=== PATIENT | male | born 1980 | race Caucasian/White ===

== ENCOUNTER 2024-03-02 15:09 | Emergency (ER) | payer OTHER, SELFPAY ==
[2024-03-02 15:12] VITALS: BP 131/93
[2024-03-02 15:26] LABS: Glucose - Point of Care 87 mg/dl (70-99)
[2024-03-02 15:31] VITALS: BP 131/90
[2024-03-02 15:35] VITALS: BMI 27.4
--- NOTE | 2024-03-02 15:40 | ED.GENMED ---
History of Present Illness
General
Chief Complaint: Change in Mental Status
Source: patient and spouse
Time Seen by Provider: 03/02/24 15:29
Travel History
Have you had any contact with someone who has COVID-19?: No
Do you have any symptoms of coronavirus? Fever > 100 degrees, chills, cough, shortness of breath, sore throat, loss of taste or smell, muscle aches, or headache?: No
History of Present Illness
History of Present Illness:
43-year-old male presents to the emergency room for evaluation of headache, difficulty finding his words, photophobia. Symptoms began yesterday. Patient states he initially began feeling unwell early yesterday morning while in bed. He turned over
and had a sudden onset of vertigo and nausea. He got out of bed and attempted go to work and at 1 point collapsed perhaps passing out. Headache developed around that time. Headaches seem to improve somewhat throughout the day yesterday. He went
to his family doctor today for an evaluation. They referred him to the emergency room for further evaluation. Patient states on his way here to the emergency room his headache became suddenly worse. His neck feels tight or stiff. He is nauseous
but has not vomited.
Past History
Past History
ED Past Medical History: None and Other (back pain); Negative Asthma, HTN, Hypercholesterolemia or NIDDM
ED Past Surgical History: Orthopedic
Social History
Tobacco: Former smoker
Alcohol: Occasional
Drug: None
Personal:
Living: with family
Employment: Employed
Family History
Family History: Other (Noncontributory)
Phy Exam
Physical Exam
Physical Exam:
General: Awake, Alert, Oriented X3. At times slow to form sentences but no true word finding difficulty. Mildly anxious
Vitals: unremarkable
Head: Atraumatic
Eyes: Pupils equal, EOMI, horizontal nystagmus with left lateral gaze
Throat: Airway intact, no exudates
Neck: Trachea midline
Lungs: Clear and equal b/l
Heart: Regular rate, no murmurs
Abd: Soft, Nontender, No pulsatile mass
Neuro: Cranial nerves intact, muscle strength equal bilaterally, cerebellar exam normal
Skin: Warm, dry, no rash
Extremities: pulses equal b/l, no edema
Course
Orders/Labs/Results
Orders:
Orders
03/02/24 15:19
EKG [Electrocardiogram (*1)] Urgent
Reason for Study: Fatigue / Weakness
EKG- Treatment ONCE
03/02/24 15:38
Electrocardiogram (*1) Stat
Reason for Study: Other
Other Reason for Exam: neuro symptoms
CT Head & Neck Angio W/wo IV Urgent
Comment:
Reason For Exam: severe headache, confusion
CT Head W/o Iv Contrast Urgent
Comment:
Reason For Exam: severe headache, confusion
Cardiac Monitoring- Treatment ONCE
03/02/24 15:41
Complete Blood Count/No Diff Urgent
Comprehensive Metabolic Panel Urgent
03/02/24 16:36
Ketorolac [Toradol] 15 mg IV NOW STA
diazePAM [Valium Injection] 5 mg IV NOW STA
Abnormal Lab Results
03/02/24
15:41
BUN 23 H mg/dl
(06-11)
03/02/24 15:41
03/02/24 15:41
Vital Signs
Initial and Last Documented VS:
Initial Vital Signs
Temp Pulse Resp BP Pulse Ox
98.5 F 62 16 131/93 96
03/02/24 15:12 03/02/24 15:12 03/02/24 15:12 03/02/24 15:12 03/02/24 15:12
Last Documented Vital Signs
Temp Pulse Resp BP Pulse Ox
98.5 F 68 18 116/78 98
03/02/24 15:12 03/02/24 18:50 03/02/24 18:50 03/02/24 18:50 03/02/24 18:50
MDM/Problems Addressed
Differential Diagnosis Includes:
sah, migraine, labrynthitis, bph
MDM/Problems Addressed:
Patient presents with significant headache. His describes him as having difficulty speaking but he is articulate. He follows commands. His speech pattern is slow but not aphasic in any way. He has no dysarthria. His NIH score is 0. CT and
CT angiogram obtained. These were normal. The patient's symptoms of vertigo seem to start when he rolled over in bed suggesting more of a peripheral vertigo. Patient had significant improvement with Valium. He is ambulatory without difficulty.
He is speaking more comfortably. Patient stable for discharge home
*Radiology
Radiology exam reviewed: radiology read reviewed
*Pulse Oximetry
Patient hypoxic: no
*EKG
Interpreted by ED Provider?: Yes
Interpretation: normal
Heart Rate: 74
Rate: normal
Rhythm: sinus
Jackson: normal axis
Interval: normal interval
QRS Pattern: normal QRS
Ischemia: no ischemia
*Bed Laster Interpretation
Rate: normal
Interpretation: normal
Heart Rate: 74
Rhythm: sinus
*Critical Care Note
Total Time (30-74mins, 75-104mins- exclusive of procedures): Not Applicable
ED Attending Note
-
Portions of this chart may have been created with voice recognition software.� Occasional wrong word or��sound alike� substitutions may have occurred due to the inherent limitations of voice recognition software.
Discharge Plan
Departure
Patient Disposition: Home (Routine Discharge)
Date of Disposition: 03/02/24
Time of Disposition: 18:45
Patient with high blood pressure during this ER visit?: No
Condition: Good
Discharge Problem:
Vertigo
Instructions: Vertigo ED
Prescriptions:
No Action
sertraline 50 mg Tablet
50 mg PO DAILY
B Complex Tablet Extended Release
1 tab PO DAILY
saw palmetto 160 mg Capsule
160 mg PO DAILY
magnesium 250 mg Tablet
250 mg PO DAILY
cholecalciferol (vitamin D3) [Vitamin D3] 25 mcg (1,000 unit) Tablet
25 mcg PO DAILY
glycine 500 mg Capsule
500 mg PO DAILY
omega [id number]-rnd-fish oil [Fish Oil] 1,000 mg (120 mg-180 mg) Capsule
1 cap PO DAILY
[place]o
1 tab PO DAILY
inositol
1 tab PO DAILY
vitamin K2
1 tab PO DAILY
Referrals:
Justino Anton MD [Family Provider] -
Bryan Hyde MD [Active] -
Activity Restrictions/Additional Instructions:
I suspect your symptoms are related to inner ear inflammation. I have provided you contact information for an ears nose and throat specialist to follow-up with. Of also given you a prescription for therapy with our physical therapy department.
You can take meclizine 25mg every 8 hours for vertigo. This can be obtained [id number].
Interventions
Interventions:
*Risk Screen - Suicide Last Done: 03/02/24 15:35
*General Assessment Last Done: 03/02/24 15:35
*Neglect/Abuse Screening Last Done: 03/02/24 15:35
ED- Fall Risk Assessment Last Done: 03/02/24 15:35
*ED COVID-19 Vaccine History Last Done: 03/02/24 15:35
*Nursing Disposition Last Done: 03/02/24 18:50
ED- Pulmonary Assessment Last Done: 03/02/24 15:35
ED-Psychological Assessment Last Done: 03/02/24 15:35
ED- Neurological Assessment Last Done: 03/02/24 15:35
ED- Cardiac Assessment Last Done: 03/02/24 15:35
ED Swallowing Screen Last Done: 03/02/24 17:24
Discharge Date and Time
Discharge Date/Time: 03/02/24 18:55
Print Language: LATVIAN
[2024-03-02 15:54] LABS: Hematocrit 41.4 % (39.0-52.0); Mean Corp Hgb Conc. 36.2 g/dL (33.0-37.0); Mean Corpuscular Volume 85.5 fL (80.0-94.0); Mean Platelet Volume 9.6 fL (7.4-10.4); Platelet Count 232 10^3/uL (130-400); Red Blood Cell Count 4.84 10^6/uL (4.70-6.10); Red Cell Dist. Width 12.7 % (11.5-14.5); White Blood Cell Count 7.6 10^3/uL (4.8-10.8)
[2024-03-02 16:12] LABS: ALT (SGPT) 32 U/L (0-50); AST (SGOT) 29 U/L (17-59); Albumin 4.7 g/dl (3.5-5.0); Alkaline Phosphatase 73 U/L (38-126); Blood Urea Nitrogen 23 mg/dl (9-20); Calcium 10.2 mg/dl (8.4-10.2); Carbon Dioxide 26 mmol/L (22-30); Chloride 104 mmol/L (98-107); Estimated Creatinine Clearance 90 ml/min; Glucose 91 mg/dl (70-99); Potassium 4.5 mmol/L (3.5-5.1); Sodium 138 mmol/L (135-145); Total Protein 7.5 g/dl (6.3-8.2); eGFR > 60.00
[2024-03-02 16:14] VITALS: BP 110/79
[2024-03-02] MEDS: TORADOL 15 MG IV (16:52)
[2024-03-02] MEDS: VALIUM INJECTION 5 MG IV (16:52)
[2024-03-02 17:00] VITALS: BP 107/75
[2024-03-02 18:50] VITALS: BP 116/78
--- NOTE | 2024-03-02 18:57 | EDRN ---
Reviewed discharge instructions with patient. Verbalized understanding. Ambulated with steady gait to the lobby.
== END 2024-03-02 18:55 | disposition home or self-care (01) ==
LOC: EMR 15:09
PROVIDERS: EMERGENCY PHYSICIAN Emergency Medicine; FAMILY PHYSICIAN Family Medicine
DX: R42 Dizziness and giddiness (principal); Z87.891 Personal history of nicotine dependence
CPT/HCPCS: 99285; 96374; 96375; 70450; 70496; 70498; 80053; 82962; 85027; 93005; Q9967